=== PATIENT | male | born 1990 | race Caucasian/White ===

== ENCOUNTER 2022-08-21 20:59 | Inpatient (IN) | payer BC ==
[2022-08-21 22:17] VITALS: BMI 27.3
[2022-08-21] MEDS ORDERED: ONDANSETRON *ODT* 4 MG TABLET SL PRN (23:22)
[2022-08-21] MEDS ORDERED: LOPERAMIDE HCL 2 MG CAPSULE PO PRN (23:22)
[2022-08-21] MEDS ORDERED: MAGNESIUM HYDROX 2400MG/30ML ORAL SUSPENSION 30 ML CUP PO PRN (23:22)
[2022-08-21] MEDS ORDERED: NICOTINE POLACRILEX 2 MG GUM BUC PRN (23:22)
[2022-08-21] MEDS ORDERED: ACETAMINOPHEN 325 MG TABLET (FP) PO PRN ×2 (23:22)
[2022-08-21] MEDS ORDERED: NICOTINE 10 MG CARTRIDGE (INHALER) IH PRN (23:22)
[2022-08-21] MEDS ORDERED: IBUPROFEN 600 MG TABLET (FP) PO PRN (23:22)
[2022-08-21] MEDS ORDERED: MAG HYDROX/AL HYDROX/SIMETH 30 ML UNIT-DOSE CUP PO PRN (23:22)
[2022-08-21] MEDS ORDERED: DICYCLOMINE HCL 10 MG CAPSULE PO PRN (23:22)
[2022-08-21] MEDS ORDERED: BENZOCAINE/MENTHOL (CHLORASEPTIC ) LOZENGE MM PRN (23:22)
[2022-08-21] MEDS ORDERED: MAGNESIUM CITRATE 300 ML BOTTLE PO PRN (23:22)
[2022-08-21] MEDS ORDERED: BISMUTH SUBSALICYLATE 524 MG/30 ML PO PRN (23:22)
[2022-08-21] MEDS ORDERED: guaiFENesin 200 MG/10 ML 10 ML UNIT-DOSE CUPS PO PRN (23:22)
[2022-08-21] MEDS ORDERED: P-EPHED 60MG/TRIPROLIDI 2.5MG TABLET PO PRN (23:22)
[2022-08-21] MEDS ORDERED: IBUPROFEN 400 MG TABLET (FP) PO PRN (23:22)
[2022-08-21] MEDS ORDERED: diazePAM 5 MG TABLET PO PRN (23:24)
[2022-08-21] MEDS ORDERED: diazePAM 5 MG TABLET ONE (23:48)
[2022-08-21] MEDS ORDERED: IBUPROFEN 600 MG TABLET (FP) PO ONE (23:49)
[2022-08-21] MEDS: diazePAM 5 MG TABLET PO SCH (23:51)
[2022-08-22] MEDS: cloNIDine HCL 0.1 MG TABLET PO PRN ×3 (00:30→17:38)
[2022-08-22] MEDS: METHOCARBAMOL 500 MG TABLET PO PRN ×2 (00:30→17:38)
[2022-08-22] MEDS: hydrOXYzine PAMOATE 25 MG CAPSULE (FP) PO PRN ×3 (00:30→22:16)
[2022-08-22] MEDS: BACITRACIN 15 GM TUBE TOPICAL OINTMENT TP SCH ×3 (01:08→22:14)
[2022-08-22] MEDS: diazePAM 5 MG TABLET PO SCH ×4 (05:58→22:11)
[2022-08-22 10:42] LABS: BLOOD UREA NITROGEN 12.4 mg/dL (7-18); CALCIUM 8.4 mg/dL (8.5-10.1); HEMATOCRIT 42.1 % (35.4-49); HEMOGLOBIN 14.6 GM/dL (11.7-16.9); MCH 32.8 pg (25.7-33.7); MCHC 34.6 g/dl (32.0-35.9); MEAN CELL VOLUME 94.7 fl (80-96); MEAN PLT VOLUME 7.6 fl (7.5-11.1); PLATELET COUNT 224 10^3/uL (134-434); RBC 4.45 M/mm3 (4.00-5.60); RDW 15.6 % (11.9-15.9); WHITE BLOOD COUNT 8.4 K/mm3 (4.0-10.0)
[2022-08-22 10:43] LABS: ALBUMIN 3.6 g/dl (3.4-5.0)
[2022-08-22 10:45] LABS: CREATININE 0.7 mg/dL (0.55-1.3)
[2022-08-22 10:47] LABS: BILIRUBIN,TOTAL 0.4 mg/dL (0.2-1); TOT PROT 6.5 g/dl (6.4-8.2)
[2022-08-22] MEDS: PRENATAL VITAMINS W/ FOLIC ACID TABLET (FP) PO SCH (10:56)
[2022-08-22] MEDS: amLODIPine BESYLATE 10 MG TABLET (FP) PO SCH (10:57)
[2022-08-22] MEDS: NICOTINE 14 MG/24 HOURS TOPICAL PATCH TD SCH (10:58)
[2022-08-22] MEDS ORDERED: MELATONIN 5 MG TABLETS PO SCH (22:00)
[2022-08-22] MEDS ORDERED: THIAMINE HCL 100 MG TABLET (FP) PO SCH (22:00)
[2022-08-23] MEDS: diazePAM 5 MG TABLET PO SCH ×2 (05:55→14:53)
[2022-08-23 07:25] VITALS: RESP 18
[2022-08-23] MEDS: amLODIPine BESYLATE 10 MG TABLET (FP) PO SCH (10:39)
[2022-08-23] MEDS: PRENATAL VITAMINS W/ FOLIC ACID TABLET (FP) PO SCH (10:39)
[2022-08-23] MEDS: NICOTINE 14 MG/24 HOURS TOPICAL PATCH TD SCH (10:39)
[2022-08-23] MEDS: cloNIDine HCL 0.1 MG TABLET PO PRN (10:42)
[2022-08-23] MEDS: BACITRACIN 15 GM TUBE TOPICAL OINTMENT TP SCH (10:42)
[2022-08-23 17:28] VITALS: BP 133/81; PULSE 78; TEMP 97.7
[2022-08-24] MEDS ORDERED: diazePAM 5 MG TABLET PO SCH (06:00)
[2022-08-25] MEDS ORDERED: diazePAM 5 MG TABLET PO ONE (06:00)
== END 2022-08-23 18:50 | disposition left against medical advice (07) | DRG 770 ==
LOC: YASAS 20:59 → Y6N 23:34
PROVIDERS: ADMIT Allergy & Immunology; ATTEND Surgery
PROC: HZ2ZZZZ Detoxification Services for Substance Abuse Treatment (ICD-10-PCS; principal; 2022-08-21)
DX: F10.230 Alcohol dependence with withdrawal, uncomplicated (principal); F17.210 Nicotine dependence, cigarettes, uncomplicated; I10 Essential (primary) hypertension
CPT/HCPCS: 36415; 80053; 85027; 86780; 87811; C9803-CS; U0003; U0005

== ENCOUNTER 2023-10-04 14:09 | Inpatient (IN) | payer BC ==
[2023-10-04 15:31] VITALS: BMI 24.7
[2023-10-04] MEDS ORDERED: POLYETHYLENE GLYCOL (HEALTHYLAX) 3350 17 GM PACKET PO PRN (16:32)
[2023-10-04] MEDS ORDERED: BISMUTH SUBSALICYLATE 524 MG/30 ML PO PRN (16:32)
[2023-10-04] MEDS ORDERED: MAG HYDROX/AL HYDROX/SIMETH 30 ML UNIT-DOSE CUP PO PRN (16:32)
[2023-10-04] MEDS ORDERED: DICYCLOMINE HCL 10 MG CAPSULE PO PRN (16:32)
[2023-10-04] MEDS ORDERED: IBUPROFEN 600 MG TABLET (FP) PO PRN (16:32)
[2023-10-04] MEDS ORDERED: LOPERAMIDE HCL 2 MG CAPSULE PO PRN (16:32)
[2023-10-04] MEDS ORDERED: diazePAM 5 MG TABLET PO PRN (16:32)
[2023-10-04] MEDS ORDERED: NALOXONE HCL 0.4 MG/ML VIAL IM PRN (16:32)
[2023-10-04] MEDS ORDERED: BENZOCAINE/MENTHOL (CHLORASEPTIC ) LOZENGE MM PRN (16:32)
[2023-10-04] MEDS ORDERED: ONDANSETRON *ODT* 4 MG TABLET SL PRN (16:32)
[2023-10-04] MEDS ORDERED: guaiFENesin 600 MG TABLET.ER (FP) PO PRN (16:32)
[2023-10-04] MEDS ORDERED: IBUPROFEN 400 MG TABLET (FP) PO PRN (16:32)
[2023-10-04] MEDS ORDERED: ACETAMINOPHEN 325 MG TABLET (FP) PO PRN (16:32)
[2023-10-04] MEDS ORDERED: MAGNESIUM HYDROX 2400MG/30ML ORAL SUSPENSION 30 ML CUP PO PRN (16:32)
[2023-10-04] MEDS ORDERED: BENZONATATE 200 MG CAPSULE PO PRN (16:32)
[2023-10-04] MEDS ORDERED: NALOXONE HCL (KLOXXADO) 8 MG SPRAY NS PRN (16:32)
[2023-10-04] MEDS ORDERED: NICOTINE POLACRILEX 2 MG GUM BUC PRN (16:32)
[2023-10-04] MEDS ORDERED: diazePAM 5 MG TABLET ONE (16:58)
[2023-10-04] MEDS: diazePAM 5 MG TABLET PO SCH ×2 (17:01→22:11)
[2023-10-04] MEDS: MELATONIN 5 MG TABLETS PO SCH (22:10)
[2023-10-04] MEDS: hydrOXYzine PAMOATE 25 MG CAPSULE (FP) PO PRN (22:11)
[2023-10-04] MEDS: METHOCARBAMOL 500 MG TABLET PO PRN (22:11)
[2023-10-04] MEDS: THIAMINE HCL 100 MG TABLET (FP) PO SCH (22:11)
[2023-10-05] MEDS: diazePAM 5 MG TABLET PO SCH ×4 (05:18→22:12)
[2023-10-05] MEDS: METHOCARBAMOL 500 MG TABLET PO PRN ×3 (06:44→22:12)
[2023-10-05] MEDS: hydrOXYzine PAMOATE 25 MG CAPSULE (FP) PO PRN ×2 (06:44→22:12)
[2023-10-05] MEDS: PRENATAL VITAMINS W/ FOLIC ACID TABLET (FP) PO SCH (10:20)
[2023-10-05 15:59] LABS: CHLORIDE 104 mmol/L (98-107); POTASSIUM 4.3 mmol/L (3.5-5.1); SODIUM 139 mmol/L (136-145)
[2023-10-05 16:04] LABS: HEMATOCRIT 44.4 % (35.4-49); HEMOGLOBIN 15.1 GM/dL (11.7-16.9); MCH 32.4 pg (25.7-33.7); MCHC 34.1 g/dl (32.0-35.9); MEAN CELL VOLUME 95.1 fl (80-96); MEAN PLT VOLUME 7.9 fl (7.5-11.1); PLATELET COUNT 225 10^3/uL (134-434); RBC 4.67 M/mm3 (4.00-5.60); RDW 15.2 % (11.9-15.9); WHITE BLOOD COUNT 5.1 K/mm3 (4.0-10.0)
[2023-10-05 16:07] LABS: ANION GAP 5 mmol/L (4-13); BLOOD UREA NITROGEN 7.8 mg/dL (7-18); CALCIUM 9.3 mg/dL (8.5-10.1); CO2 29 mmol/L (21-32); GLUCOSE,RANDOM 81 mg/dL (74-106)
[2023-10-05 16:08] LABS: CREATININE 0.8 mg/dL (0.55-1.3); SGPT/ALT 68 U/L (13-61)
[2023-10-05 16:09] LABS: BILIRUBIN,TOTAL 1.1 mg/dL (0.2-1)
[2023-10-05 16:11] LABS: ALK PHOS 101 U/L (45-117); SGOT/AST 67 U/L (15-37)
[2023-10-05] MEDS: THIAMINE HCL 100 MG TABLET (FP) PO SCH (22:12)
[2023-10-05] MEDS: MELATONIN 5 MG TABLETS PO SCH (22:12)
[2023-10-06] MEDS: diazePAM 5 MG TABLET PO SCH ×2 (05:24→13:44)
[2023-10-06] MEDS: hydrOXYzine PAMOATE 25 MG CAPSULE (FP) PO PRN (05:25)
[2023-10-06] MEDS: PRENATAL VITAMINS W/ FOLIC ACID TABLET (FP) PO SCH (10:40)
[2023-10-06] MEDS: METHOCARBAMOL 500 MG TABLET PO PRN (10:41)
[2023-10-06 13:09] VITALS: BP 136/89; PULSE 78; RESP 20; TEMP 97.8
[2023-10-07] MEDS ORDERED: diazePAM 5 MG TABLET PO SCH (06:00)
[2023-10-08] MEDS ORDERED: diazePAM 5 MG TABLET PO ONE (06:00)
== END 2023-10-06 14:17 | disposition left against medical advice (07) | DRG 770 ==
LOC: YASAS 14:09 → Y3N 17:04
PROVIDERS: ADMIT Allergy & Immunology; ATTEND Surgery
PROC: HZ2ZZZZ Detoxification Services for Substance Abuse Treatment (ICD-10-PCS; principal; 2023-10-04)
DX: F10.230 Alcohol dependence with withdrawal, uncomplicated (principal); F11.20 Opioid dependence, uncomplicated; F13.20 Sedative, hypnotic or anxiolytic dependence, uncomplicated; F17.210 Nicotine dependence, cigarettes, uncomplicated
CPT/HCPCS: 36415; 80053; 80307; 85027; 86780; 87635